=== PATIENT | male | born 1960 | race Caucasian/White ===

== ENCOUNTER → 2022-08-02 | Outpatient (CLI) | payer BC ==
[~2022-08-02] MED LIST: HYDR-3730 PO; LEVO500T2 PO; OXYC1TAB11 PO; OXYC1TAB87 PO
== END ==
LOC: ORTHO 17:09
PROVIDERS: ATTEND Orthopaedic Surgery
DX: S46.011A Strain of muscle(s) and tendon(s) of the rotator cuff of right shoulder, initial encounter (principal); X58.XXXA Exposure to other specified factors, initial encounter
CPT/HCPCS: 99202

== ENCOUNTER → 2022-08-03 | Outpatient (CLI) | payer OTHER ==
--- NOTE | 2022-08-03 15:54 | Diagnostic Imaging Report ---
PROCEDURE: MRI right joint upper extremity without contrast. TECHNIQUE: Multiplanar, multisequence non contrast-enhanced MRI of the right upper extremity was accomplished. INDICATION: Fall, right shoulder pain COMPARISON: None FINDINGS: There is motion artifact on multiple sequences. No acute fracture is seen in the right shoulder. There is a moderate right shoulder joint effusion. There is severe degenerative change in the acromioclavicular joint. There is a moderate-sized full-thickness tear of the supraspinatus tendon measuring 2 cm in width, with medial retraction of 3 cm just past the dome of the humeral head. The infraspinatus tendon demonstrates low-grade partial-thickness tearing. The teres minor tendon appears intact. The subscapularis tendon demonstrates small full-thickness tear at the cranial fibers with tendinosis and low-grade partial-thickness tearing elsewhere. There is mild generalized muscular atrophy with moderate atrophy of the supraspinatus muscle. The long head of the biceps tendon demonstrates mild tendinosis at the intra-articular portion.. The glenoid labrum is suboptimally evaluated in the absence of intra-articular contrast. There may be some degeneration posteriorly. No paralabral cyst is seen. The acromion has a curved undersurface. There is moderate subacromial spurring. The coracoclavicular and coracoacromial ligaments are intact. Soft tissues about the right shoulder otherwise unremarkable. IMPRESSION: 1. Full-thickness tears in the right supraspinatus and subscapularis tendons with additional low-grade partial-thickness tearing in the rotator cuff. There is moderate atrophy of the supraspinatus muscle. 2. Mild tendinosis of the proximal biceps tendon. 3. Severe degenerative changes in the acromioclavicular joint with moderate subacromial spurring. 4. Moderate right shoulder joint effusion. Dictated by: Dictated on workstation # [id number]
== END ==
LOC: RAD 14:00
PROVIDERS: ATTEND Orthopaedic Surgery
DX: S46.091A Other injury of muscle(s) and tendon(s) of the rotator cuff of right shoulder, initial encounter (principal); M19.011 Primary osteoarthritis, right shoulder; M75.21 Bicipital tendinitis, right shoulder; M75.111 Incomplete rotator cuff tear or rupture of right shoulder, not specified as traumatic; M75.121 Complete rotator cuff tear or rupture of right shoulder, not specified as traumatic; W19.XXXA Unspecified fall, initial encounter
CPT/HCPCS: 73221

== ENCOUNTER → 2022-08-16 | Outpatient (CLI) | payer OTHER | LOC: ORTHO 08:53 | PROVIDERS: ATTEND Orthopaedic Surgery | DX: M75.100 Unspecified rotator cuff tear or rupture of unspecified shoulder, not specified as traumatic (principal) | CPT/HCPCS: 99213 ==

== ENCOUNTER 2022-08-17 05:33 | Outpatient (CLI) | payer OTHER, BC ==
[~2022-08-17] VITALS: Ht 180.3 cm; Wt 101.7 kg
== END 2022-08-17 11:05 ==
LOC: PREOP 05:33
PROVIDERS: ATTEND Orthopaedic Surgery
DX: Z01.818 Encounter for other preprocedural examination (principal); M75.101 Unspecified rotator cuff tear or rupture of right shoulder, not specified as traumatic

== ENCOUNTER 2022-08-22 07:46 | Day surgery (SDC) | payer OTHER, BC ==
[~2022-08-22] VITALS: Ht 180.3 cm; Wt 101.7 kg
[2022-08-22] VITALS (11 sets, daily range): BP systolic 145–173; BP diastolic 82–101
[2022-08-22] MEDS ORDERED: EPINEPHrine INJECTION 1 MG/ML AMP ONE (07:57)
[2022-08-22] MEDS ORDERED: fentaNYL INJ 100 MCG/2 ML AMP ONE (08:13)
[2022-08-22] MEDS ORDERED: ROPIVACAINE 5MG/ML 30ML VIAL ONE (08:13)
[2022-08-22] MEDS ORDERED: LIDOCAINE PF 2% 5 ML (XYLOCAINE) VIAL ONE (08:13)
[2022-08-22] MEDS ORDERED: MIDAZOLAM 2 MG/2 ML (VERSED) VIAL ONE (08:14)
[2022-08-22] MEDS ORDERED: ceFAZolin INJECTION 2,000 MG in NS (IVPB) 50 ML IV ONE (08:15)
[2022-08-22] MEDS: LACTATED RINGERS 1,000 ML IV PRN ×2 (08:30→10:55)
[2022-08-22] MEDS ORDERED: proPOfol 200 MG/20 ML (DIPRIVAN) VIAL IV ONE (08:41)
[2022-08-22] MEDS ORDERED: ROCURONIUM 10 MG/ML 5 ML SYRINGE IV ONE (08:41)
[2022-08-22] MEDS ORDERED: ONDANSETRON 4 MG/2 ML (SDV) Z0FRAN ONE (08:44)
[2022-08-22] MEDS ORDERED: EPINEPHrine INJECTION 1 MG/ML AMP IR ONE (10:59)
[2022-08-22] MEDS ORDERED: NEOSTIGMINE (BLOXIVERZ ) 1 MG/1ML 10 ML VIAL ONE (12:01)
[2022-08-22] MEDS ORDERED: KETOROLAC 30 MG/ML VIAL ONE (12:01)
[2022-08-22] MEDS ORDERED: GLYCOPYRROLATE 0.2 MG/ML (ROBINUL) 2 ML VIAL ONE (12:01)
--- NOTE | 2022-08-22 12:04 | Operative Report - Ortho ---
Operative Report Surgeon (s)/Deputy Commissioner (s) Surgeon IVY CASTILLO MD Deputy Commissioner n/a Pre-Operative Diagnosis RIGHT ROTATOR CUFF TEAR Post-Operative Diagnosis same Operative Report Date of Procedure: Aug 22, 2022 Name of Procedure Performed: Right Shoulder Arthroscopy with Rotator Cuff Repair Description & Findings After obtaining informed consent and marking the patient in the preoperative holding area, patient received regional anesthesia. Patient did receive intravenous antibiotics. Patient was taken to the operating room. General anesthesia was induced and the patient was placed in the lateral decubitus position with the right side up. Right upper extremity was prepped and draped in the usual sterile fashion. Surgical timeout was taken. Posterior portal was established. Diagnostic glenohumeral arthroscopy was performed with the following findings: biceps tendon demonstrated longitudinal tear with fraying, intact articular cartilage, no loose bodies in the axillary pouch, complete tear of the rotator cuff at the footprint, intact labrum. Anterior portal was estab lished and shaver was inserted. The undersurface of the cuff tear was debrided to a stable border. Probe was inserted and the biceps was inspected and found to have greater than 50% thickness involvement. A biceps tenotomy was performed and shaver was used to debride the remaining stump of the biceps. Instruments were then taken up into the subacromial space. Lateral portal was established. Shaver was used to remove bursal tissue. Rotator cuff footprint was debrided to bleeding bone. Edge of the rotator cuff was debrided. Two medial row anchors were then placed. Tape sutures from each anchor were passed through the cuff us ing a needle suture passer. One limb from each medial anchor was then taken to the lateral portal. Suture tails were passed through and punched into a lateral socket. Tension as applied to the sutures and an anchor was deployed. Tails of the suture were cut. A second [employer] two-step anchor was then placed posterior to the first with final 2 limbs of suture; punched, tensioned, and then anchor was deployed. Tails were cut. Rotator cuff repair was viewed from the posterior and lateral portals and demonstrated improved position reaching the edge of the debrided footprint. Instruments were removed. Incisions were closed with 3-0 nylon sutures. Wounds were dressed with xeroform, 4x4s, ABD, and tape. Patient was placed in an abduction sling postoperatively. Anesthesia Type General plus Regional Estimated Blood Loss minimal Specimen(s) collected/removed None IVY CASTILLO MD Aug 22, 2022 12:04
[2022-08-22] MEDS ORDERED: OXC5T PO (12:06)
[2022-08-22] MEDS ORDERED: SEVOFLURANE (ULTANE) 15 ML INHAL SOLN ONE (12:12)
[2022-08-22] MEDS ORDERED: morphine INJ 10 MG/ML 1ML (SYR OR VIAL) ONE (12:43)
[2022-08-22] MEDS ORDERED: PROMETHAZINE INJ 25 MG/ML (PHENERGAN) AMP IVP ONE (12:45)
[2022-08-22] MEDS ORDERED: MEPERIDINE (DEMEROL) INJ 50 MG/ML IVP ONE (12:45)
[2022-08-22] MEDS ORDERED: morphine INJ 10 MG/ML 1ML (SYR OR VIAL) IVP ONE (12:45)
[2022-08-22] MEDS ORDERED: ONDANSETRON 4 MG/2 ML (SDV) Z0FRAN IVP PRN (12:45)
--- NOTE | 2022-08-22 13:36 | Anesthesia-General Post-Op ---
General Patient Condition Mental Status/LOC: Same as Preop Cardiovascular: Satisfactory Nausea/Vomiting: Absent Respiratory: Satisfactory Pain: Controlled Complications: Absent Post Op Complications Complications None Follow Up Care/Instructions Patient Instructions None needed. Anesthesia/Patient Condition Patient Condition Patient is doing well, no complaints, stable vital signs, no apparent adverse anesthesia problems. No complications reported per nursing. IVY CRAWFORD CRNA Aug 22, 2022 13:36
== END 2022-08-22 14:45 | disposition home or self-care (01) ==
LOC: SDC 07:46
PROVIDERS: ATTEND Orthopaedic Surgery
DX: S46.091D Other injury of muscle(s) and tendon(s) of the rotator cuff of right shoulder, subsequent encounter (principal)
CPT/HCPCS: 29827; 87081; C1713 ×3

== ENCOUNTER → 2022-08-30 | Outpatient (CLI) | payer OTHER, BC ==
[~2022-08-30] MED LIST changes: +OXC5T PO
== END ==
LOC: ORTHO 10:45
PROVIDERS: ATTEND Orthopaedic Surgery
DX: Z47.89 Encounter for other orthopedic aftercare (principal)

== ENCOUNTER → 2022-09-06 | Outpatient (CLI) | payer OTHER, BC | LOC: ORTHO 08:59 | PROVIDERS: ATTEND Orthopaedic Surgery | DX: Z47.89 Encounter for other orthopedic aftercare (principal) ==

== ENCOUNTER → 2022-09-20 | Outpatient (CLI) | payer OTHER, BC | LOC: ORTHO 08:45 | PROVIDERS: ATTEND Orthopaedic Surgery | DX: Z47.89 Encounter for other orthopedic aftercare (principal) ==

== ENCOUNTER → 2022-10-04 | Outpatient (CLI) | payer OTHER, BC | LOC: ORTHO 08:57 | PROVIDERS: ATTEND Orthopaedic Surgery | DX: Z47.89 Encounter for other orthopedic aftercare (principal) ==

== ENCOUNTER → 2022-11-03 | Outpatient (CLI) | payer OTHER, BC | LOC: ORTHO 08:30 | PROVIDERS: ATTEND Orthopaedic Surgery | DX: Z47.89 Encounter for other orthopedic aftercare (principal) ==

== ENCOUNTER → 2022-12-06 | Outpatient (CLI) | payer OTHER, BC | LOC: ORTHO 08:50 | PROVIDERS: ATTEND Orthopaedic Surgery | DX: Z47.89 Encounter for other orthopedic aftercare (principal) ==

== ENCOUNTER → 2023-01-05 | Outpatient (CLI) | payer OTHER, BC | LOC: ORTHO 15:26 | PROVIDERS: ATTEND Orthopaedic Surgery | DX: Z47.89 Encounter for other orthopedic aftercare (principal) | CPT/HCPCS: 99213 ==

== ENCOUNTER → 2023-02-14 | Outpatient (CLI) | payer OTHER, BC | LOC: ORTHO 14:08 | PROVIDERS: ATTEND Orthopaedic Surgery | DX: Z98.890 Other specified postprocedural states (principal) | CPT/HCPCS: 99213 ==

== ENCOUNTER → 2023-02-27 | Outpatient (CLI) | payer BC, OTHER ==
--- NOTE | 2023-02-27 11:35 | Diagnostic Imaging Report ---
MRI RT UPPER EXT JOINT W/O Technique: Multiplanar, multisequence MR imaging of the right shoulder was performed without contrast. Comparison: MRI of the shoulder from 08/03/2022. Indication: Right shoulder pain. Prior rotator cuff repair. Findings: Rotator cuff: Prior repair of the supraspinatus and subscapularis has been performed. Recurrent tear in the supraspinatus involves the entire width and has the stump retracted to level of the mid humeral head. The subscapularis tendon repair is intact. Infraspinatus has mild tendinopathy without superimposed tear. Teres minor is normal. Mild fatty infiltration of the supraspinatus and infraspinatus is present. Glenoid labrum: Truncation of the superior labrum is likely from surgical debridement. No chondrolabral separation or para-labral cyst. Long head of biceps: The intracapsular segment and long head of biceps is not visualized and tenodesis has likely been performed. Bones and cartilage: Humeral head is normal in morphology without fracture or focal osseous lesion. No glenohumeral chondromalacia. Moderate osteoarthritis of the AC joint has large inferior projecting osteophytes that narrows the subacromial space. Soft tissues: Small glenohumeral joint effusion with mild synovitis. No MRI findings to suggest adhesive capsulitis. A small amount of fluid is present in the subacromial and subdeltoid space. IMPRESSION: 1. Recurrent full-thickness tear of the supraspinatus status post repair. 2. The subscapularis repair remains intact. 3. 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 Long head of biceps is absent and biceps tenodesis has likely been performed. Correlation with surgical history is suggested. Dictated by: Dictated on workstation # [id number]
== END ==
LOC: RAD 08:41
PROVIDERS: ATTEND Orthopaedic Surgery
DX: M75.111 Incomplete rotator cuff tear or rupture of right shoulder, not specified as traumatic (principal); Z98.890 Other specified postprocedural states
CPT/HCPCS: 73221